=== PATIENT | female | born 1985 | race African-American/Black ===

== ENCOUNTER 2019-07-25 12:02 | Day surgery (SDC) | payer OTHER ==
[2019-07-25] MEDS ORDERED: Buffered Lidocaine 1% SYRIN* 1 ML/SYRINGE INTRADERM ONE ×2 (13:23→14:42)
[2019-07-25 13:52] LABS: ABS Lymphocytes 1.9 10^3/ul (1.0-4.8); ABS Monocytes 0.4 10^3/ul (0-0.8); ABS Neutrophils 1.8 10^3/ul (1.5-7.7); Eosinophil % 0.6 %; Hematocrit 37 % (35-47); Hemoglobin 12.6 g/dL (12.0-16.0); Lymphocyte % 45.8 %; Mean Corpuscular HGB Conc 34 g/dL (31-36); Mean Corpuscular Hemoglobin 30 pg (27-31); Mean Corpuscular Volume 89 fL (80-97); Mean Platelet Volume 7.8 fL (7.4-10.4); Platelet Count 286 10^3/uL (150-450); Red Blood Count 4.13 10^6 /uL (3.70-4.87); Red Cell Distribution Width 15 % (10-15); White Blood Count 4.1 10^3/uL (3.5-10.8)
[2019-07-25] MEDS ORDERED: Ondansetron INJ* 2 MG/ML VIAL ONE ×2 (14:25→19:17)
[2019-07-25] MEDS ORDERED: Dexamethasone IV* 4 MG/ML 1 ML (4 MG) ONE (14:25)
[2019-07-25] MEDS ORDERED: Famotidine IV* 10 MG/ML 2 ML (20 mg) ONE (14:26)
[2019-07-25] MEDS ORDERED: Acetaminophen IV 1GM/100ML * 100 ML ONE (14:26)
[2019-07-25] MEDS ORDERED: Famotidine IV* 10 MG/ML 2 ML (20 mg) IV ONE (14:42)
[2019-07-25] MEDS ORDERED: KETAMINE HCL* 50 MG/ML 10 ML VIAL ONE (14:55)
[2019-07-25] MEDS ORDERED: Midazolam* 1 MG/ML 5 ML VIAL (5 MG) ONE (14:55)
[2019-07-25] MEDS ORDERED: fentaNYL* 50 MCG/ML 2 ML VIAL (100 MCG VIAL) ONE ×4 (14:55→18:10)
[2019-07-25] MEDS ORDERED: Rocuronium* 10 MG/ML VIAL ONE (14:55)
[2019-07-25] MEDS ORDERED: Lidocaine 2% PF * 5 ML VIAL ONE (14:56)
[2019-07-25] MEDS ORDERED: Propofol* 10 MG/ML 20 ML BTL ONE ×2 (14:56→16:50)
[2019-07-25] MEDS ORDERED: Lactated Ringers 1000 ML Bag* 1,000 ML IV SCH (15:00)
[2019-07-25] MEDS ORDERED: Bupivacaine 0.25% SDV* 30 ML ONE (15:32)
[2019-07-25] MEDS ORDERED: Midazolam* 1 MG/ML 2 ML VIAL (2 MG) ONE (16:21)
[2019-07-25] MEDS ORDERED: Labetalol IV* 5 MG/ML 20 ML VIAL ONE (16:50)
[2019-07-25] MEDS ORDERED: Naloxone* 0.4 MG/ML 1 ML VIAL IV PRN (16:54)
[2019-07-25] MEDS ORDERED: Acetaminophen TAB* 325 MG PO PRN (16:54)
[2019-07-25] MEDS ORDERED: DiMENhydriNATE IV* 50 MG/ML VIAL IV PUSH PRN (16:54)
[2019-07-25] MEDS ORDERED: HYDROcodone/ACETAMIN 5-325 MG* 1 TAB PO PRN ×2 (16:54)
[2019-07-25] MEDS ORDERED: diPHENhydraMINE IV* 50 MG/ML 1 ml VIAL (BENADRYL) IV PRN (16:54)
[2019-07-25] MEDS ORDERED: Ondansetron INJ* 2 MG/ML VIAL IV PRN (16:54)
[2019-07-25] MEDS ORDERED: Ketorolac INJ* 30 MG/ML 1 ML VIAL ONE (17:30)
[2019-07-25] MEDS ORDERED: HYDROcodone/ACETAMIN 5-325 MG* 1 TAB ONE (18:09)
[2019-07-25] MEDS: fentaNYL* 50 MCG/ML 2 ML VIAL (100 MCG VIAL) IV PRN ×2 (18:15→18:25)
[2019-07-25 20:12] VITALS: BP 121/71
--- NOTE | 2019-07-26 02:32 | OP ---
DATE OF OPERATION: 07/25/19 - [facility] DATE OF : 81 SURGEON: Alicia Barahona MD MASON TENDER: Glynn Ospina DO PRE-OP DIAGNOSIS: Left ectopic . POST-OP DIAGNOSIS: Left ectopic . OPERATIVE PROCEDURE: Laparoscopic left salpingectomy with removal of ectopic . ESTIMATED BLOOD LOSS: Minimal. FLUIDS: Crystalloid. DRAINS: 200 mL of clear urine drained via straight cath prior to procedure. COMPLICATIONS: None. Counts were all correct. FINDINGS: Left ectopic in the mid-portion of the tube. Normal- appearing ovaries. Normal-appearing right tube and normal-appearing uterus. No evidence of intraabdominal infection or endometriosis. DESCRIPTION OF PROCEDURE: After informed consent was signed, the patient was taken to the operating room where she was given general anesthesia, was found to be adequate. She was prepped and draped in the dorsal lithotomy position in Martin stirrups. The bladder was drained of urine. A speculum was placed into the vagina to expose the cervix. The anterior and posterior lips of the cervix were grasped and an Os Finder was used to be able to enter the internal cervical os. The Nanotecturelka manipulator was then inserted. The tenaculum was removed. Then, gloves were changed and attention was turned to the abdomen. The infraumbilical fold was grasped with towel clamps and tented up and injected with Marcaine. A 5-mm incision was made in the infraumbilical fold with a scalpel. The trocar was then assembled and inserted into the abdominal cavity under direct visualization with the camera. The abdomen was insufflated and lateral ports were placed both 5 mm in length. They were inserted under direct visualization. Attention was then turned to the pelvis. The uterus was anteverted and the ectopic was in the left tube. The LigaSure device was assembled and inserted. The proximal portion of the tube was clamped, cauterized, and cut with LigaSure device. The mesosalpinx was then clamped, cauterized, and cut along the length of the tube. The distal portion of the tube was adhesed to the ovary; therefore, the tube was clamped, cauterized, and cut just distal to the ectopic , and this portion of specimen was removed via a 5-mm EndoCatch bag. Next, the distal portion of the tube was carefully dissected off the ovary with LigaSure device and this was also removed through a lateral port. Incision site was inspected and good hemostasis was noted. The pressure was let down in the abdominal cavity and good hemostasis was still noted. The abdominal cavity was inspected and the appendix was visualized and seemed to be normal as well as the rest of the easily visualized abdominal cavity including intestines and liver. The lateral ports were then removed under direct visualization. The umbilical port was removed. The abdomen was desufflated. The skin incisions were closed with 4-0 Vicryl. Mastisol and Steri-Strips were placed. The patient was cleaned. The Hulka manipulator was removed. She was placed back in the supine position and moved to the stretcher and taken to the recovery room in stable condition. [id number]/[facility] #: [id number] [place]
[2019-07-28 14:00] LABS: Chlamydia trachomatis NAA Negative (Negative); Neisseria gonorrhoeae (GC) NAA Negative (Negative)
== END 2019-07-25 20:40 | disposition home or self-care (01) ==
LOC: OR 12:02
PROVIDERS: ATTEND Obstetrics & Gynecology
DX: O00.102 Left tubal pregnancy without intrauterine pregnancy (principal); Z80.0 Family history of malignant neoplasm of digestive organs
CPT/HCPCS: 36415; 85025; 86850; 86900; 86901; 87491; 87591; 88305; J1100; J1885; J2250; J2405; J2704; J3010; J3490

== ENCOUNTER 2019-07-29 03:24 | Emergency (ER) | payer OTHER ==
[2019-07-29] MEDS ORDERED: fentaNYL* 50 MCG/ML 2 ML VIAL (100 MCG VIAL) IV SLOW PU ONE ×2 (03:37→06:27)
[2019-07-29] MEDS ORDERED: Famotidine IV* 10 MG/ML 2 ML (20 mg) IV SLOW PU ONE (03:37)
[2019-07-29] MEDS ORDERED: Lactated Ringers 1000 ML Bag* 1,000 ML IV ONE (03:37)
[2019-07-29] MEDS ORDERED: Ondansetron INJ* 2 MG/ML VIAL IV ONE ×2 (03:37→08:48)
--- NOTE | 2019-07-29 03:54 | ED ---
Abdominal Pain/Female - HPI Summary HPI Summary: This pt is a 34 Y/O F presenting to [facility] with a CC of pain post-surgery along her lower abdomen following a laparoscopic ectopic removal that is currently rated an 8/10 in severity and has been present since 07/27/2019. She states that she has diffuse lower abdominal pain. She states that she had vaginal bleeding and discharge for 24 hours from 07/27/2019 till 07/28/2019. She denies any fevers, chills, headaches, N/V, and CP. She states that she has a PMHx of a recent ectopic on the L side. She states that the entire L fallopian tube was removed. She has no alleviating or aggravating factors. She states that she has been taking her prescribed pain medications without constipation. - History of Current Complaint Chief Complaint: EDOBProblems Stated Complaint: POST OP 4 DAYS IN PAIN PER PT Time Seen by Provider: 07/29/19 03:35 Hx Obtained From: Patient ?: No Onset/Duration: Sudden Onset, Lasting Days Timing: Constant Severity Initially: Severe Severity Currently: Severe Pain Intensity: 8 Pain Scale Used: 0-10 Numeric Location: Diffuse - lower abdominal Radiates: No Character: Cramping Aggravating Factor(s): Nothing Alleviating Factor(s): Nothing Associated Signs and Symptoms: Positive: Negative - chills, headaches,, Vaginal Bleeding, Vaginal Discharge. Negative: Fever, Chest Pain, Nausea, Vomiting Allergies/Adverse Reactions: Allergies Allergy/AdvReac Type Severity Reaction Status Date / Time No Known Allergies Allergy Verified 07/29/19 03:32 Home Medications: Home Medications NK [No Home Medications Reported] 07/29/19 [History Confirmed 07/29/19] PMH/Surg Hx/FS Hx/Imm Hx Previously Healthy: Yes Endocrine/Hematology History: Denies: Hx Diabetes Cardiovascular History: Denies: Hx Deep Vein Thrombosis - Cancer History Hx Chemotherapy: No Hx Radiation Therapy: No - Surgical History Surgery Procedure, Year, and Place: Laproscopic ectopic L ovary removal 2019 - Immunization History Immunizations Up to Date: Yes Infectious Disease History: No Infectious Disease History: Denies: Traveled Outside the [place] in Last 30 Days - Family History Known Family History: Negative: Hypertension, Diabetes - Social History Occupation: Employed Full-time Lives: With Family Alcohol Use: Rare Hx Substance Use: No Substance Use Type: Reports: None Hx Tobacco Use: No Smoking Status (MU): Never Smoked Tobacco Review of Systems Negative: Fever, Chills Negative: Chest Pain Positive: Abdominal Pain - lower. Negative: Vomiting, Nausea Negative: Headache All Other Systems Reviewed And Are Negative: Yes Physical Exam - Summary Physical Exam Summary: Constitutional: Well-developed, Well-nourished, Alert. (-) Distressed Skin: Warm, Dry HENT: Normocephalic; Atraumatic Eyes: Conjunctiva normal Neck: Musculoskeletal ROM normal neck. (-) JVD, (-) Stridor, (-) Tracheal deviation Cardio: Rhythm regular, rate normal, Heart sounds normal; Intact distal pulses; The pedal pulses are 2+ and symmetric. Radial pulses are 2+ and symmetric. Pulmonary/Chest wall: Effort normal. (-) Respiratory distress, (-) Wheezes, (-) Rales Abd: Soft, 3 laparoscopic surgical scar, RLQ,LLQ, and lower umbilical. Covered with steri-stripes. States gradual bleeding for 24 hours, RLQ tenderness. Midline, suprapubic, LLQ not tender to deep palpation, (-) Distension, (-) Guarding, (-) Rebound Musculoskeletal: (-) Edema Neuro: Alert, Oriented x3 Psych: Mood and affect Normal Triage Information Reviewed: Yes Vital Signs On Initial Exam: Initial Vitals Temp Pulse Resp BP Pulse Ox 97.8 F 86 15 134/94 100 07/29/19 03:26 07/29/19 03:26 07/29/19 03:26 07/29/19 03:26 07/29/19 03:26 Vital Signs Reviewed: Yes Procedures - Sedation Patient Received Moderate/Deep Sedation with Procedure: No Diagnostics - Vital Signs Vital Signs Temp Pulse Resp BP Pulse Ox 07/29/19 03:26 97.8 F 86 15 134/94 100 - Laboratory Result Diagrams: 07/29/19 03:45 07/29/19 03:45 Lab Statement: Any lab studies that have been ordered have been reviewed, and results considered in the medical decision making process. - CT CT A/P CT Interpretation Completed By: Radiologist Summary of CT Findings: Low-density heterogeneous mass approximately at the level of the cervix, possibly representing large complex nabothian cyst or other mass lesion. Abscess cannot be entirely excluded. Tiny gas bubbles in the soft tissues of the lower right anterior pelvic area, probably secondary to recent surgical intervention. ED physician has reviewed this report. Abdominal Pain Fem Course/Dx - Course Course Of Treatment: This pt is a 34 Y/O F presenting to [facility] with a CC of pain post-surgery along her lower abdomen following a laparoscopic ectopic removal that is currently rated an 8/10 in severity and has been present since 07/27/2019. She states that she has diffuse lower abdominal pain. She states that she had vaginal bleeding and discharge for 24 hours from 2019 till 07/28/2019. Her PE found 3 laparoscopic surgical scar, RLQ,LLQ, and lower umbilical. Covered with steri-stripes. States gradual bleeding for 24 hours, RLQ tenderness. Midline, suprapubic, LLQ not tender to deep palpation. CT A/P: Low-density heterogeneous mass approximately at the level of the cervix , possibly representing large complex nabothian cyst or other mass lesion. Abscess cannot be entirely excluded. Tiny gas bubbles in the soft tissues of the lower right anterior pelvic area, probably secondary to recent surgical intervention. She has no abnormalities in her lab results that are pertinent to this CC. Dr. Arriola, oncology, recommended having the pt receive a pelvic US to help determine if the mass is a piece of the ectopic left behind or a more malignant finding. Pt will be a sign out to Dr. Lazarus Felton MD from Dr. Mikey Bello MD at shift change 0700 07/29/2019 pending transvaginal US and disposition. - Diagnoses Provider Diagnoses: Abdominal mass, Complication after ectopic - Provider Notifications Discussed Care Of Patient With: Minda Arriola Time Discussed With Above Provider: 06:23 Instructed by Provider To: Other - Dr. Arriola, oncology, recommended having the pt receive a pelvic US to help determine if the mass is a piece of the ectopic left behind or a more malignant finding. Discharge ED - Sign-Out/Discharge Documenting (check all that apply): Sign-Out Patient Signing out patient TO: Kai Felton - Discharge Plan Condition: Good Referrals: No Primary Care Phys,NOPCP [Primary Care Provider] - - Billing Disposition and Condition Condition: GOOD - Attestation Statements Document Initiated by Scribe: Yes Documenting Scribe: Wilbert Tatum Provider For Whom Scribe is Documenting (Include Credential): Mikey Bello MD Scribe Attestation: I, Wilbert Tatum, scribed for Mikey Bello MD on 07/29/19 at 0638. Scribe Documentation Reviewed: Yes Provider Attestation: The documentation as recorded by the scribeWilbert accurately reflects the service I personally performed and the decisions made by me, Mikey Bello MD Status of Scribe Document: Viewed
[2019-07-29 03:55] LABS: ABS Basophils 0.1 10^3/ul (0-0.2); ABS Eosinophils 0.1 10^3/ul (0-0.6); ABS Lymphocytes 2.3 10^3/ul (1.0-4.8); ABS Monocytes 0.6 10^3/ul (0-0.8); ABS Neutrophils 3.2 10^3/ul (1.5-7.7); Eosinophil % 1.6 %; Hematocrit 40 % (35-47); Hemoglobin 13.2 g/dL (12.0-16.0); Lymphocyte % 36.9 %; Mean Corpuscular HGB Conc 33 g/dL (31-36); Mean Corpuscular Hemoglobin 30 pg (27-31); Mean Corpuscular Volume 90 fL (80-97); Mean Platelet Volume 7.5 fL (7.4-10.4); Nucleated Red Blood Cells % 0.1; Platelet Count 332 10^3/uL (150-450); Red Blood Count 4.39 10^6 /uL (3.70-4.87); Red Cell Distribution Width 14 % (10-15); White Blood Count 6.2 10^3/uL (3.5-10.8)
[2019-07-29 04:10] LABS: Activated Partial Thrombo Time 31.1 seconds (26.0-38.0); INR 1.02 (0.82-1.09)
[2019-07-29 04:16] LABS: Albumin/Globulin Ratio 1.4 (1-3); BUN/Creatinine Ratio 13.4 (8-20); Calcium 8.8 mg/dL (8.6-10.3); EGFR African American 95.4 (>60); EGFR Non-African American 78.9 (>60); Globulin 2.9 g/dL (2-4); Indirect Bilirubin 0.2 mg/dL (0.3-1.0); Potassium 3.6 mmol/L (3.5-5.0); Total Bilirubin 0.3 mg/dL (0.2-1.0); Total Protein 6.9 g/dL (6.4-8.9)
[2019-07-29] MEDS ORDERED: Iohexol 300* (CONTRAST) 10 ML SDV IV ONE (04:39)
[2019-07-29 06:54] LABS: HCG Pregnancy 997.94 mIU/mL
--- NOTE | 2019-07-29 07:12 | ED ---
Progress - Progress Note Progress Note: Patient is received as a sign-out from Dr. Bello at 0700 07/29/19 shift change pending transvaginal US and disposition. PELVIC/TRANSVAGINAL US 1. Corresponding to same day CT images, there is a mostly cystic fluid collection immediately anterior to the lower uterine segment and cervix measuring 4.3 cm in greatest dimension. Within this mostly cystic collection there are soft tissue nodules that do not exhibit vascularity. Based on sonographic and CT imaging, this fluid collection would be expected to be located at approximately the 2:00 position on pelvic examination. 2. Avascular mixed echogenicity endometrial collection measuring 0.9 x 2.2 cm in the sagittal plane, possibly retained products of conception. THIS REPORT WAS REVIEWED BY ED PHYSICIAN. 1013 - Patient's case discussed with Dr. Puri, OB, will come to ED for evaluation. 1030 - Dr. Puri evaluated the patient and states the patient is safe for discharge. She will followup with her OB, Dr. Barahona, in two days. Course/Dx - Course Course Of Treatment: Patient is received as a sign-out from Dr. Bello at 0700 07/29/19 shift change pending transvaginal US and disposition. PELVIC/ TRANSVAGINAL US. 1. Corresponding to same day CT images, there is a mostly cystic fluid collection. immediately anterior to the lower uterine segment and cervix measuring 4.3 cm in greatest. dimension. Within this mostly cystic collection there are soft tissue nodules that do not. exhibit vascularity. Based on sonographic and CT imaging, this fluid collection would be. expected to be located at approximately the 2:00 position on pelvic examination. 2. Avascular mixed echogenicity endometrial collection measuring 0.9 x 2.2 cm in the. sagittal plane, possibly retained products of conception. THIS REPORT WAS REVIEWED BY ED PHYSICIAN. 1013 - Patient's case discussed with Dr. Puri , OB, will come to ED for evaluation. 1030 - Dr. Puri evaluated the patient and states the patient is safe for discharge. She will followup with her OB, Dr. Barahona, in two days. - Diagnoses Provider Diagnoses: Retained products of conception - Provider Notifications Discussed Care Of Patient With: Jaret Puri Time Discussed With Above Provider: 10:12 Instructed by Provider To: Other - 1013 - Patient's case discussed with Dr. Puri, OB, will come to ED for evaluation. 1030 - Dr. Puri evaluated the patient and states the patient is safe for discharge. She will followup with her OB, Dr. Barahona, in two days. Discharge ED - Sign-Out/Discharge Documenting (check all that apply): Patient Departure - discharge , Receiving Sign-Out Receiving patient FROM: Mikey Bello - Discharge Plan Condition: Stable Disposition: HOME Patient Education Materials: Abdominal Pain (ED) Referrals: Alicia Barahona MD [Medical Doctor] - 2 Days Additional Instructions: PLEASE RETURN FOR ANY NEW OR CONCERNING SYMPTOMS. PLEASE FOLLOW UP WITH YOUR OB IN TWO DAYS. - Billing Disposition and Condition Condition: STABLE Disposition: Home - Attestation Statements Document Initiated by Ashutosh: Yes Documenting Scribe: TIMOTHY BRAYNT Provider For Whom Ashutosh is Documenting (Include Credential): GRETCHEN SPAIN DO Scribe Attestation: TIMOTHY Covington, scribed for GRETCHEN SPAIN DO on 07/29/19 at 1109. Scribe Documentation Reviewed: Yes Provider Attestation: The documentation as recorded by the TIMOTHY may accurately reflects the service I personally performed and the decisions made by me, GRETCHEN SPAIN DO Status of Scriblexie Document: Viewed
[2019-07-29] MEDS ORDERED: NS 0.9% 1000 ML** 1,000 ML IV ONE (08:48)
[2019-07-29] MEDS ORDERED: Morphine 4 MG/ML VIAL (1 ml) 4 MG/ML VIAL IV ONE (08:48)
--- NOTE | 2019-07-29 10:55 | CONSULT ---
Consult Consult: Gynecology Service Consultation report. Jaret Yoder HPI: Mrs. Obrien is post laparoscopic left salpingectomy for a left tubal on 07/25/2019. She returned to the Emergency room today with complaints of bilateral lower abdominal pain not responsive to Home meds ( Percocet and Motrin). She was evaluated by the ER Physicians, treated for her pain,and was noted to have a left sided pelvic cystic mass on CT scan. Gynecology was consulted and a pelvic ultrasound and serum QHcg was recommended by Dr. Minda Arriola of [facility], who the sign out the patient to me. PMHx. Polycystic ovarian syndrome Ectopic as in HPI. OB/GYNHx. ectopic , [facility] Hx No Hx of STD's or Abnormal pap smears. PSHx. Huffman teeth Laparoscopic left salpingectomy 07/25/19 for ectopic . SHx. Denies Cigarette/Alcohol/Drug use or abuse. FHx. Father Colon Cancer, Mother no chronic illness. Meds. Percocet and Motrin (post surgical) NKDA. ROS. Denies fever/chills/generalized malaise/confusion Respiratory. Denies shortness of breath/wheezing/coughing/Rhinitis/ Sneezing. Cardiovascular. Denies Chest pain/Palpitations/light-head/dizziness . Denies Urinary symptoms. No abnormal vaginal bleeding or discharge. GI. Admits to feeling hungry, Denies anorexia/nausea/vomiting/ constipation or diahrrea Physical exam. Vital Signs 07/29/19 07/29/19 07/29/19 03:26 03:52 03:57 Temperature 97.8 F Pulse Rate 86 69 Respiratory 15 20 Rate Blood Pressure 134/94 (mmHg) O2 Sat by Pulse 100 100 Oximetry 07/29/19 07/29/19 07/29/19 04:00 04:01 04:35 Temperature Pulse Rate 70 63 Respiratory 18 Rate Blood Pressure 124/86 124/86 (mmHg) O2 Sat by Pulse 99 99 Oximetry 07/29/19 07/29/19 07/29/19 05:13 05:14 05:15 Temperature Pulse Rate 68 64 Respiratory Rate Blood Pressure 129/81 129/81 (mmHg) O2 Sat by Pulse 100 99 100 Oximetry 07/29/19 07/29/19 07/29/19 06:27 06:28 06:33 Temperature Pulse Rate 73 72 Respiratory 20 Rate Blood Pressure 114/69 (mmHg) O2 Sat by Pulse 100 100 Oximetry 07/29/19 07/29/19 07/29/19 07:13 07:14 08:00 Temperature Pulse Rate 69 67 65 Respiratory Rate Blood Pressure 122/85 123/89 (mmHg) O2 Sat by Pulse 100 99 99 Oximetry 07/29/19 07/29/19 07/29/19 08:53 09:00 09:23 Temperature Pulse Rate 70 85 70 Respiratory 20 Rate Blood Pressure 136/91 140/85 (mmHg) O2 Sat by Pulse 100 100 97 Oximetry 07/29/19 07/29/19 09:53 10:00 Temperature Pulse Rate 70 70 Respiratory Rate Blood Pressure 147/93 (mmHg) O2 Sat by Pulse 97 97 Oximetry Neuro. Patient is lying in bed in no distress, denies pain, is alert, awake and oriented X3 Lungs CTA b/l, no CVA tenderness noted. CV. RRR Abdomen. Soft, mild distension, normal bowel sounds. Laparoscopic incisions are clean/dry/intact with erythema/discharge or induration. No rebound or guarding noted with minimal tendernes with palpation at lower abdomen bilaterally. Lab Results - Entire Visit 07/29/19 07/29/19 07/29/19 03:45 03:45 03:45 WBC 6.2 RBC 4.39 Hgb 13.2 Hct 40 MCV 90 MCH 30 MCHC 33 RDW 14 Plt Count 332 MPV 7.5 Neut % (Auto) 50.7 Lymph % (Auto) 36.9 Harding % (Auto) 9.8 Eos % (Auto) 1.6 Baso % (Auto) 1.0 Absolute Neuts (auto) 3.2 Absolute Lymphs (auto) 2.3 Absolute Monos (auto) 0.6 Absolute Eos (auto) 0.1 Absolute Basos (auto) 0.1 Absolute Nucleated RBC 0.0 Nucleated RBC % 0.1 INR (Anticoag Therapy) 1.02 APTT 31.1 Sodium 136 Potassium 3.6 Chloride 105 Carbon Dioxide 26 Anion Gap 5 BUN 11 Creatinine 0.82 Est GFR ( Amer) 95.4 Est GFR (Non-Af Amer) 78.9 BUN/Creatinine Ratio 13.4 Glucose 98 Calcium 8.8 Total Bilirubin 0.30 Direct Bilirubin 0.10 Indirect Bilirubin 0.2 L AST 22 ALT 18 Alkaline Phosphatase 44 Total Protein 6.9 Albumin 4.0 Globulin 2.9 Albumin/Globulin Ratio 1.4 Lipase 27 Beta HCG, Quant 997.94 Patient Name: NYLA OBRIEN Medical Record#: [id number] Ordering Physician: Mikey Bello MD Acct.#: [id number] : 1985 Age: 34 Sex: F Location: EMERGENCY DEPARTMENT Exam Date: 07/29/19 0350 ADM Status: REG ER Order Information: CT ABD/PEL W Accession Number: [id number] CPT: 80715 PROCEDURE INFORMATION: Exam: CT Abdomen And Pelvis With Contrast Exam date and time: 07/29/2019 5:04 AM Age: 34 years old Clinical indication: Abdominal pain; Flank; Right lower quadrant (rlq); Prior surgery; Surgery date: 3-7 days post-operative; Additional info: Rlq pain +ttp, S/P L ectopic preg removed TECHNIQUE: Imaging protocol: Computed tomography of the abdomen and pelvis with intravenous contrast. Radiation optimization: All CT scans at this facility use at least one of these dose optimization techniques: automated exposure control; mA and/or kV adjustment per patient size (includes targeted exams where dose is matched to clinical indication); or iterative reconstruction. Contrast material: OMNI 300; Contrast volume: 69 ml; Contrast route: IV; COMPARISON: No relevant prior studies available. FINDINGS: Liver: Normal. No mass. Gallbladder and bile ducts: Normal. No calcified stones. No ductal dilation. Pancreas: Normal. No ductal dilation. Spleen: Normal. No splenomegaly. Adrenals: Normal. No mass. Kidneys and ureters: Normal. No hydronephrosis. Stomach and bowel: Unremarkable. No obstruction. No mucosal thickening. Appendix: The appendix is normal in appearance. 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 Lymph nodes: Unremarkable. No enlarged lymph nodes. . Bladder: Unremarkable as visualized. Reproductive: There is a slightly lobulated mass in the lower left pelvic area measuring approximately 4.6 x 4.1 cm in size with central intermediate and low density components. It appears to lie within the left aspect of the cervix and there appears to be some mild dilatation of a portion of the lower uterine endometrial cavity. Bones/joints: Unremarkable. No acute fracture. Soft tissues: Tiny gas bubble is seen in the subcutaneous fat in the lower right anterior pelvic area and a 2nd tiny gas bubble is seen deep to the lower right rectus muscle, changes most likely secondary to recent surgery. IMPRESSION: Low-density heterogeneous mass approximately at the level of the cervix, possibly representing large complex nabothian cyst or other mass lesion. Abscess cannot be entirely excluded. Tiny gas bubbles in the soft tissues of the lower right anterior pelvic area, This report is only to be considered final once signed by the Provider(s) as displayed in the "<Electronically Signed by >" field (s). Absence of a signature indicates the report is in a draft status and still needs to be finalized. In the event this document was created by someone other than the signing Provider, the individual initiating the document will be listed in the "Entered by:" or "Dictated by:" lang. 1 of 2 Patient Name: NYLA OBRIEN Medical Record#: [id number] Ordering Physician: Mikey Bello MD Acct.#: [id number] : 1985 Age: 34 Sex: F Location: EMERGENCY DEPARTMENT Exam Date: 07/29/19621 ADM Status: REG ER Order Information: US PELVIS/ TRANSVAG Accession Number: [id number] CPT: 08174 INDICATION: Right lower quadrant pain in a patient with history of left ectopic July 27, 2019 COMPARISON: CT abdomen pelvis July 29, 2019 TECHNIQUE: Real-time transabdominal and transvaginal ultrasound examination of the female pelvis including grayscale and Doppler color flow imaging. FINDINGS: Uterus: Uterus measures 8.7 x 4.3 x 5.2 cm. Immediately anterior to the lower uterine segment/cervix is a mostly anechoic and mostly avascular collection measuring approximately 3.7 x 2.5 x 4.3 cm. At the more inferior anterior margin of this mostly cystic collection is an avascular soft tissue component measuring 1.7 x 2.2 x 2.3 cm. At the mid-level uterus endometrium there is a mixed echogenicity focus without vascularity measuring approximately 0.9 x 2.2 cm in the sagittal plane (image 22 ). Otherwise the endometrial stripe is homogenous and echogenicity measuring 0.4 cm in thickness. Ovaries: The right and left ovary measure 3.3 x 1.9 x 2.5 cm and 3.1 x 1.9 x 2.5 cm, respectively. Normal arterial and venous waveforms are identified. Appearance is within normal limits for the patient's age. There is no free fluid in the cul-de-sac. IMPRESSION: 1. Corresponding to same day CT images, there is a mostly cystic fluid collection immediately anterior to the lower uterine segment and cervix measuring 4.3 cm in greatest dimension. Within this mostly cystic collection there are soft tissue nodules that do not exhibit vascularity. Based on sonographic and CT imaging, this fluid collection would be expected to be located at approximately the 2:00 position on pelvic examination. 2. Avascular mixed echogenicity endometrial collection measuring 0.9 x 2.2 cm in the sagittal plane, possibly retained products of conception. <Electronically signed by Timothy Johnson MD in OV> 07/29/19915 Dictated By: Timothy Johnson MD Dictated Date/Time: 07/29/19857 Transcribed Date/Time: 07/29/19857 Copy to: This report is only to be considered final once signed by the Provider(s) as displayed in the "<Electronically Signed by >" field (s). Absence of a signature indicates the report is in a draft status and still needs to be finalized. In the event this document was created by someone other than the signing Provider, the individual initiating the document will be listed in the "Entered by:" or "Dictated by:" lang. 1 of 2 Impression. Stable, afebrile 33 y/o post laparoscopic left salpingectomy for ectopic with a dropping quantitative HCG, Non- acute abdomen and pain responsive to medication. Ultrasound findings c/w avascular fluid collection which most likely can be irrigation fluid and residual blood in pelvis after her surgery, irritating the peritoneum. Recommendation. Discharge home, continue prescribed pain medications after her procedure. She has a follow up appointment this coming 07/31/19 at [facility]. Recommend she has a follow up HCG at that visit and clinical reevaluation. Patient instructed to return to ED if her symtptoms do not improve priro to her follow up visit.
[2019-07-29 11:21] VITALS: BP 120/89
== END 2019-07-29 11:18 | disposition home or self-care (01) ==
LOC: ED 03:24
DX: R19.04 Left lower quadrant abdominal swelling, mass and lump (principal); O07.4 Failed attempted termination of pregnancy without complication; R10.31 Right lower quadrant pain; R10.32 Left lower quadrant pain; Z90.79 Acquired absence of other genital organ(s)
CPT/HCPCS: 36415; 74177; 76830; 76856; 80048; 80076; 83690; 84702; 85025; 85610; 85730; 96361; 96374; 96375; 96376; 99283; J2270; J2405; J3010; Q9967

== ENCOUNTER 2022-01-12 02:44 | Inpatient (IN) ==
[2022-01-18] MEDS ORDERED: Buffered Lidocaine 1% SYRIN 1 ml INTRADERM ONE (17:57)
[2022-01-18] MEDS ORDERED: Dinoprostone 10 MG VAG.SUPP VAGINAL ONE (17:57)
[2022-01-18] MEDS ORDERED: Lactated Ringers 1000 ml BAG 1,000 ML IV ONE (17:57)
[2022-01-18] MEDS ORDERED: Lactated Ringers 1000 ml BAG 1,000 ML IV SCH (18:00)
[2022-01-18] MEDS ORDERED: Nalbuphine 10 MG/ML 1 ML VIAL IV PRN (21:14)
[2022-01-18] MEDS ORDERED: Promethazine INJ(RESTRICTED) 25 MG/ML 1 ml VIAL IV PRN (21:15)
[2022-01-18 21:45] LABS: Hematocrit 36 % (35-47); Hemoglobin 11.9 g/dL (12.0-16.0); Mean Corpuscular HGB Conc 33 g/dL (31-36); Mean Corpuscular Hemoglobin 29 pg (27-31); Mean Corpuscular Volume 89 fL (80-97); Mean Platelet Volume 9.3 fL (7.4-10.4); Platelet Count 203 10^3/uL (150-450); Red Blood Count 4.07 10^6 /uL (3.70-4.87); Red Cell Distribution Width 18 % (10-15); White Blood Count 6.5 10^3/uL (3.5-10.8)
[2022-01-18 21:57] LABS: Urine Benzodiazepine Screen None Detected (None Detect); Urine Cannabinoids Screen None Detected (None Detect); Urine Opiates Screen None Detected (None Detect)
[2022-01-18 22:04] LABS: ABS Lymphocytes 1.8 10^3/ul (1.0-4.8); ABS Monocytes 0.6 10^3/ul (0-0.8); ABS Neutrophils 4.1 10^3/ul (1.5-7.7); Eosinophil % 0.5 %; Lymphocyte % 27.6 %; Nucleated Red Blood Cells % 0.2
[2022-01-19] MEDS ORDERED: OBEPIDURAL (200 ML) 200 ML EPIDURAL ONE (07:43)
[2022-01-19] MEDS ORDERED: Lidocaine 1% w EPI 1:200,000 SDV 30 ML VIAL ONE (07:44)
[2022-01-19] MEDS ORDERED: Lidocaine 2% w/ EPI 1:200,000 MPF 20 ML SDV VIAL ONE ×2 (07:56→17:30)
[2022-01-19] MEDS ORDERED: Oxytocin in LR 20,000 MILLI.UNIT/1,000 ML BAG IV SCH ×2 (08:30→22:00)
[2022-01-19] MEDS ORDERED: Sodium Citrate/Citric Acid LIQ 15 ML UDC PO PRN (08:51)
[2022-01-19] MEDS ORDERED: Lactated Ringers 1000 ml BAG 1,000 ML IV ONE (08:51)
[2022-01-19] MEDS ORDERED: Phenylephrine 40 mcg/mL 10mL (400mcg) SYRINGE IV PUSH PRN ×2 (08:51)
[2022-01-19] MEDS ORDERED: Lactated Ringers 1000 ml BAG 500 ML IV PRN ×2 (08:51)
[2022-01-19] MEDS ORDERED: Lactated Ringers 1000 ml BAG 1,000 ML IV SCH ×3 (09:00→22:00)
[2022-01-19] MEDS ORDERED: OBEPIDURAL (200 ML) 200 ML EPIDURAL SCH (09:00)
[2022-01-19 09:49] LABS: Urine Appearance Clear; Urine Bilirubin Negative (Negative); Urine Blood Negative (Negative); Urine Color Yellow; Urine Glucose Negative (Negative); Urine Ketones Negative (Negative); Urine Nitrite Negative (Negative); Urine Protein Negative (Negative); Urine Specific Gravity 1.015 (1.005-1.030); Urine Urobilinogen 0.2 (Negative) (Negative)
[2022-01-19] MEDS ORDERED: Glycerin ADULT 2.4 gm SUPP PR PRN (21:48)
[2022-01-19] MEDS ORDERED: Witch Hazel PAD JAR TOPICAL PRN (21:48)
[2022-01-19] MEDS ORDERED: Dibucaine 1% OINT 28.35 GM TUBE PR PRN (21:48)
[2022-01-20 07:09] LABS: ABS Lymphocytes 1.5 10^3/ul (1.0-4.8); ABS Monocytes 1.2 10^3/ul (0-0.8); ABS Neutrophils 8.6 10^3/ul (1.5-7.7); Eosinophil % 0.1 %; Hematocrit 35 % (35-47); Hemoglobin 11.5 g/dL (12.0-16.0); Lymphocyte % 12.9 %; Mean Corpuscular HGB Conc 33 g/dL (31-36); Mean Corpuscular Hemoglobin 30 pg (27-31); Mean Corpuscular Volume 90 fL (80-97); Mean Platelet Volume 9.2 fL (7.4-10.4); Platelet Count 183 10^3/uL (150-450); Red Blood Count 3.89 10^6 /uL (3.70-4.87); Red Cell Distribution Width 18 % (10-15); White Blood Count 11.2 10^3/uL (3.5-10.8)
[2022-01-21 08:11] VITALS: BP 106/62
== END 2022-01-21 11:57 | disposition home or self-care (01) | DRG 560 ==
LOC: EDSTATUS 01-18 18:00 → MCHOB 01-18 18:11
PROVIDERS: ADMIT Obstetrics & Gynecology; ATTEND Obstetrics & Gynecology

== ENCOUNTER 2024-03-27 08:41 | Inpatient (IN) ==
[2024-03-27] MEDS ORDERED: Prochlorperazine 5 mg/ml 2 ml VIAL (10 mg) IV PRN (10:03)
[2024-03-27] MEDS ORDERED: Lidocaine 1% VIAL 10 MG/ML 30 ML VIAL INJ PRN (10:03)
[2024-03-27] MEDS: miSOPROStol 100 mcg TAB VAGINAL ONE ×2 (10:25→14:37)
[2024-03-27 10:59] LABS: Urine Benzodiazepine Screen None Detected (None Detect); Urine Cannabinoids Screen None Detected (None Detect); Urine Opiates Screen None Detected (None Detect)
[2024-03-27 11:37] LABS: ABS Lymphocytes 1.6 10^3/uL (1.0-4.8); ABS Monocytes 0.2 10^3/uL (0.0-0.9); ABS Neutrophils 3.7 10^3/uL (1.5-7.6); ABS Nucleated RBC 0.03 10^3/ul; Eosinophil % 0.3 %; Hematocrit 41.9 % (35-45); Hemoglobin 13.9 g/dL (11.5-14.3); Lymphocyte % 29.1 %; Mean Corpuscular Hemoglobin 29.8 pg (27-33); Mean Corpuscular Hgb Conc 33.2 g/dL (31-36); Mean Corpuscular Volume 89.9 fL (80-97); Mean Platelet Volume 9.7 fL (7.5-11.2); Nucleated Red Blood Cells % 0.6 %/100WBC (0.0-0.8); Platelet Count 234 10^3/uL (150-450); Red Blood Count 4.66 10^6/uL (3.63-4.92); Red Cell Distribution Width 15.8 % (12-17); White Blood Count 5.6 10^3/uL (3.8-11.8)
[2024-03-27 12:02] LABS: Urine Creatinine Concentration 91.46 mg/dL (20.00-320.00); Urine TP Creat Ratio 0.15 mg/mg
[2024-03-27 12:22] LABS: Albumin 3.8 g/dL (3.2-5.2); Albumin/Globulin Ratio 1.4 (1-3); Calcium 9.7 mg/dL (8.6-10.3); Creatinine, Serum 0.75 mg/dL (0.51-0.95); Globulin 2.7 g/dL (2-4); Potassium 3.9 mmol/L (3.5-5.0); Total Bilirubin 0.4 mg/dL (0.2-1.0); Total Protein 6.5 g/dL (6.4-8.9); eGFR CKD-EPI 103.2 (>60)
[2024-03-27] MEDS: Lactated Ringers 1000 ml BAG 1,000 ML IV ONE (18:45)
[2024-03-27] MEDS: fentaNYL 100 mcg/2 ml 50 MCG/ML VIAL IV SLOW PU ONE (20:27)
[2024-03-27] MEDS: Nalbuphine 10 MG/ML 1 ML VIAL IV PRN (23:33)
[2024-03-28] MEDS: miSOPROStol 100 mcg TAB VAGINAL ONE (05:01)
[2024-03-28] MEDS: Ondansetron 4 mg VIAL 2 MG/ML 2 ml VIAL IV PRN (10:26)
[2024-03-28] MEDS: Lactated Ringers 1000 ml BAG 1,000 ML IV SCH ×2 (10:29→17:40)
[2024-03-28] MEDS ORDERED: Sodium Citrate/Citric Acid LIQ 15 ML UDC PO PRN (10:54)
[2024-03-28] MEDS ORDERED: Phenylephrine 40 mcg/mL 10mL (400mcg) SYRINGE IV PUSH PRN ×2 (10:54)
[2024-03-28] MEDS: OBEPIDURAL (200 ML) 200 ML EPIDURAL ONE (11:52)
[2024-03-28] MEDS ORDERED: Witch Hazel PAD JAR TOPICAL PRN (14:46)
[2024-03-28] MEDS ORDERED: Glycerin ADULT 2.4 gm SUPP PR PRN (14:46)
[2024-03-28] MEDS ORDERED: Dibucaine 1% OINT 28.35 GM TUBE PR PRN (14:46)
[2024-03-28] MEDS ORDERED: Lactated Ringers 1000 ml BAG 1,000 ML IV SCH (15:00)
[2024-03-28] MEDS: ceFAZolin 2 GM PREMIX 2 GM/50 ML BAG ONE (16:06)
[2024-03-28] MEDS: ceFAZolin VIAL 2 GM in NS 0.9% 100 ml BAG 100 ML IVPB ONE (16:12)
[2024-03-28] MEDS: Oxytocin in LR 20,000 MILLI.UNIT/1,000 ML BAG IV ONE (17:38)
[2024-03-28] MEDS: Tranexamic Acid 1 GM/100ML BAG 0 MG/0 ML BAG IV ONE (17:38)
[2024-03-28] MEDS: Lidocaine 1.5% EPI 1:200,000 30 ML SDV ONE ×2 (17:39→17:41)
[2024-03-28] MEDS: Phenylephrine 40 mcg/mL 10mL (400mcg) SYRINGE ONE (17:40)
[2024-03-28] MEDS: Lactated Ringers 1000 ml BAG 1,000 ML IV ONE (17:40)
[2024-03-28] MEDS: OBEPIDURAL (200 ML) 200 ML EPIDURAL SCH (17:40)
[2024-03-28] MEDS: Buffered Lidocaine 1% SYRIN 1 ml INTRADERM ONE (17:41)
[2024-03-28] MEDS: miSOPROStol 100 mcg TAB PO ONE (17:41)
[2024-03-28] MEDS: Oxytocin in LR 20,000 MILLI.UNIT/1,000 ML BAG IV SCH (17:44)
[2024-03-29 07:51] LABS: ABS Lymphocytes 1.8 10^3/uL (1.0-4.8); ABS Monocytes 0.7 10^3/uL (0.0-0.9); Eosinophil % 0.4 %; Hematocrit 29.7 % (35-45); Lymphocyte % 18.8 %; Mean Corpuscular Hemoglobin 30.6 pg (27-33); Mean Corpuscular Hgb Conc 33.7 g/dL (31-36); Mean Corpuscular Volume 90.6 fL (80-97); Mean Platelet Volume 9.2 fL (7.5-11.2); Platelet Count 172 10^3/uL (150-450); Red Blood Count 3.28 10^6/uL (3.63-4.92); Red Cell Distribution Width 16.7 % (12-17); White Blood Count 9.6 10^3/uL (3.8-11.8)
[2024-03-29] MEDS: Butalb/Acetamin/Caff TAB 325-50-40MG PO PRN (09:21)
[2024-03-30 09:34] VITALS: BP 139/80
== END 2024-03-30 13:30 | disposition home or self-care (01) | DRG 541 ==
LOC: MCHOBOUT 08:41 → MCHOB 09:29
PROVIDERS: ADMIT Obstetrics & Gynecology; ATTEND Obstetrics & Gynecology